=== PATIENT | female | born 1985 | race Two or more races ===

== ENCOUNTER 2019-11-17 08:50 | Day surgery (SDC) | payer MEDICAID ==
[~2019-11-17 08:50] MED LIST: Lactated Ringers 1,000 ML IV SCH; Lidocaine 1%/Sod Bicarbonate in NS 8.4% 1 ML Syringe IDERM PRN; Sodium Chloride 0.9% 10 ML Syringe FLUSH PRN
[2019-11-17] MEDS ORDERED: Propofol 200 MG/20 ML SDV ONE (09:52)
[2019-11-17] MEDS ORDERED: Lidocaine 1% 4 ML ONE (09:52)
[2019-11-17] MEDS ORDERED: fentaNYL 100 MCG/2 ML SDV ONE (09:52)
[2019-11-17] MEDS ORDERED: Midazolam 1 MG/ML 2 ML SDV ONE (09:52)
[2019-11-17] MEDS ORDERED: Ketamine 500 mg/10 ML MDV ONE (09:54)
[2019-11-17] MEDS ORDERED: ceFAZolin 1 GM Vial ONE (10:51)
--- NOTE | 2019-11-17 11:25 | PCM.OPNOTE ---
- General Post-Op/Procedure Note Date of Surgery/Procedure: 11/17/19 Operative Procedure(s): Dilation and suction curettage Findings: Uterus sounded to 10. The endometrial curettings consistent with products of conception. No adnexal abnormality is noted. Pre Op Diagnosis: Miscarriage Post-Op Diagnosis: Same Anesthesia Technique: MAC Primary Surgeon: Cayden Lee Anesthesia Provider: Oriana Garcia Pathology: Endometrial curettings consistent with products of conception. Fluid Replacement, Intraop: 1,100 EBL in mLs: 20 Complications: None Condition: Good Free Text/Narrative:: Surgery duration: 4 minutes The patient was taken to the operating room and placed in a supine position operating table. She received 2 g of Ancef preoperatively for infection prophylaxis and had sequential compression stockings in place for DVT prophylaxis. After adequate MAC anesthesia patient was placed in a dorsal lithotomy position. A weighted speculum was placed in the vagina. Cervix is found to be dilated to approximately 1 centimeters. Uterus was sounded to approximately 10 cm. It was found to be anterior and mid position. An 8 mm suction curette was then introduced in routine fashion the endometrial cavity was evacuated. Moderate amount tissue was obtained. Findings consistent with products of conception. A medium size sharp curet was introduced and very careful fashion the endometrial cavity was curetted. It was be clear of any further tissue. The suction curet was then reintroduced and small and blood was removed. No further tissue was removed. This point the D&C was discontinued. The single-toothed tenaculum used to stabilize the anterior lip the cervix was removed. Blood was removed from the vagina with a stick sponge and the weighted speculum was removed from the vagina. The patient was awakened from LMA anesthesia. The patient was discharged from the operating room in good condition.
[2019-11-17] MEDS ORDERED: Ketorolac 30 MG/ML SDV IVPUSH SCH (11:30)
[2019-11-17] MEDS ORDERED: Ketorolac 30 MG/ML SDV ONE (11:32)
[2019-11-17 12:29] VITALS: BP 108/59; PULSE 62
== END 2019-11-17 12:22 | disposition home or self-care (01) ==
LOC: JD.SDS 08:50
PROVIDERS: ATTEND Obstetrics & Gynecology
DX: O03.4 Incomplete spontaneous abortion without complication (principal); E78.00 Pure hypercholesterolemia, unspecified; F41.9 Anxiety disorder, unspecified; F32.9 Major depressive disorder, single episode, unspecified; Z87.891 Personal history of nicotine dependence; Z91.048 Other nonmedicinal substance allergy status; Z88.1 Allergy status to other antibiotic agents; Z86.73 Personal history of transient ischemic attack (TIA), and cerebral infarction without residual deficits
CPT/HCPCS: 36415; 59812; 81001; 85025; J0690; J1885; J2001; J2250; J2704; J3010; J7120; 01965

== ENCOUNTER 2020-09-15 19:48 | Emergency (ER) | payer MEDICAID ==
[2020-09-15 20:09] VITALS: BP 124/79; PULSE 78
--- NOTE | 2020-09-15 20:13 | EDM.PDOC ---
ED HPI GENERAL MEDICAL PROBLEM - General Chief Complaint: IN [employer] Problem Stated Complaint: VAGINAL BLEEDING 9WKS PG TWINS Time Seen by Provider: 09/15/20 20:05 Source of Information: Reports: Patient History Limitations: Reports: No Limitations - History of Present Illness INITIAL COMMENTS - FREE TEXT/NARRATIVE: 35-year-old female presents to the ED with acute onset of bleeding per vagina. 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 When they were done clinic she elected to go to the bathroom due to full bladder and appreciated bright red blood per vagina on wiping with a small nickel sized clot that appeared to be slightly maroon in the toilet. Patient is known to be with twin gestation. Last known menstrual period was estimated to be around July 14. EDC has been set by ultrasound to be April 20, 2021. so far has been unremarkable. She is 4 para 2 spontaneous miscarriage x1. She is currently being cared for at a high risk maternal unit in [place]. 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 She has had no seizures and is on no seizure medication at this time. She does admit that she does have mild residual right-sided weakness. All of her deliveries thus far have been vaginal. Denies any lower abdominal cramping pain or back pain at this time. Onset: Today, Sudden Onset Date: 09/15/20 Onset Time: 19:00 Duration: Minutes: Location: Reports: Other (Acute bleeding per vagina) Quality: Reports: Other ( noted after voiding at 1900 hrs. 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 Mostly on wiping). 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 The stroke precipitated a seizure disorder but she is not had a seizure for many years and is not on antiseizure medications. Respiratory History: Reports: None Gastrointestinal History: Reports: GERD IN [employer]ING [employer] History: Reports: , Spontaneous Musculoskeletal History: Reports: None Neurological History: Reports: CVA, Migraines, Seizure Psychiatric History: Reports: Anxiety, Depression Endocrine/Metabolic History: Reports: None Hematologic History: Reports: None Immunologic History: Reports: None Oncologic (Cancer) History: Reports: None Dermatologic History: Reports: Other (See Below) Other Dermatologic History: dermatitis - Past Surgical History Head Surgeries/Procedures: Reports: None Cardiovascular Surgical History: Reports: Other (See Below) Other Cardiovascular Surgeries/Procedures: mitral valve repair Respiratory Surgical History: Reports: None GI Surgical History: Reports: None Endocrine Surgical History: Reports: None Musculoskeletal Surgical History: Reports: None Oncologic Surgical History: Reports: None Social & Family History - Caffeine Use Caffeine Use: Reports: Coffee - Living Situation & Occupation Living situation: Reports: Occupation: Employed [facility] - Review of Systems Review Of Systems: See Below Constitutional: Reports: Fatigue. Denies: Fever, Chills, Malaise HEENT: Reports: No Symptoms Respiratory: Reports: No Symptoms Cardiovascular: Reports: Other (Struve open heart surgery due to a growth on her mitral valve.) Endocrine: Reports: Fatigue GI/Abdominal: Reports: Nausea. Denies: Abdominal Pain, Constipation, Diarrhea, Vomiting (Rare nausea. No vomiting) : Reports: Frequency. Denies: Dysuria Musculoskeletal: Reports: No Symptoms Skin: Reports: No Symptoms Neurological: Reports: Seizure (You have recurrent seizures precipitated by growth on her mitral valve causing strokes no seizures) Psychiatric: Reports: No Symptoms ( for many years.) Hematologic/Lymphatic: Reports: No Symptoms Immunologic: Reports: No Symptoms ED EXAM - Physical Exam Exam: See Below Exam Limited By: No Limitations General Appearance: Alert, WD/WN, Anxious, Mild Distress, Other (Anxious. Temperature is 36.4 with a heart rate of 78 in sinus respiratory is 20 O2 sats 100% room air. BP 10/30/1978) Eye Exam: Bilateral Eye: Normal Inspection (No), PERRL ( blepharal pallor or scleral icterus.) Throat/Mouth: Normal Inspection, Normal Lips, Normal Teeth, Normal Oropharynx Neck: Normal Inspection, Non-Tender, Full Range of Motion. No: Carotid Bruit, Thyromegaly Respiratory/Chest: No Respiratory Distress, Lungs Clear, Normal Breath Sounds, No Accessory Muscle Use Cardiovascular: Normal Peripheral Pulses, Regular Rate, Rhythm ( mitral insufficiency.), No Edema, No Gallop, No Rub, Systolic Murmur (Faint grade 1 murmur heard to the left of the sternal border compatible with very slight), Other GI/Abdominal Exam: Normal Bowel Sounds, Soft (All healed midline sternotomy incision.), Non-Tender, No Organomegaly, No Mass, Pelvis Stable, Other (Scarring from belly ring above the umbilicus. Drain wound scars upper mid abdomen.) (Female) Exam: Normal External Exam Back Exam: Normal Inspection, Full Range of Motion. No: CVA Tenderness (L), CVA Tenderness (R) Extremities: Normal Inspection, Normal Range of Motion, Non-Tender, No Pedal Edema Neurological: Alert, Oriented, CN II-XII Intact, Normal Cognition, Normal Gait Psychiatric: Normal Affect, Normal Mood Skin Exam: Warm, Dry, Intact, Normal Color, No Rash Course - Vital Signs Last Recorded V/S: Last Vital Signs Temp 36.4 C 09/15/20 20:06 Pulse 78 09/15/20 20:06 Resp 20 09/15/20 20:06 BP 124/79 09/15/20 20:06 Pulse Ox 100 09/15/20 20:06 - Orders/Labs/Meds Orders: Active Orders 24 hr Category Date Time Status OB Transvaginal [US] Stat Exams 09/15/20 20:14 Taken Dextrose 5%-0.9% NaCl [Dextrose 5%-Normal Saline] 1,000 Med 09/15/20 20:15 Active ml IV ASDIRECTED Medication Orders Dextrose/Sodium Chloride (Dextrose 5%-Normal Saline) 1,000 mls @ 125 mls/hr IV ASDIRECTED KENNETH Last Admin: 09/15/20 20:42 Dose: 125 mls/hr Documented by: RODRICK Labs: Laboratory Tests 09/15/20 09/15/20 09/15/20 Range/Units 20:40 20:40 20:40 WBC 11.44 H (3.98-10.04) K/mm3 RBC 4.55 (3.98-5.22) M/mm3 Hgb 14.2 (11.2-15.7) gm/dl Hct 42.9 (34.1-44.9) % MCV 94.3 (79.4-94.8) fl MCH 31.2 (25.6-32.2) pg MCHC 33.1 (32.2-35.5) g/dl RDW Std Deviation 44.0 (36.4-46.3) fL Plt Count 220 (182-369) K/mm3 MPV 10.6 (9.4-12.3) fl Neut % (Auto) 68.9 (34.0-71.1) % Lymph % (Auto) 19.0 L (19.3-51.7) % Barton % (Auto) 10.8 (4.7-12.5) % Eos % (Auto) 0.9 (0.7-5.8) Baso % (Auto) 0.2 (0.1-1.2) % Neut # (Auto) 7.90 H (1.56-6.13) K/mm3 Lymph # (Auto) 2.17 (1.18-3.74) K/mm3 Barton # (Auto) 1.23 H (0.24-0.36) K/mm3 Eos # (Auto) 0.10 (0.04-0.36) K/mm3 Baso # (Auto) 0.02 (0.01-0.08) K/mm3 PT (9.7-12.0) SECONDS INR APTT (21.7-31.4) SECONDS Sodium 136 (136-145) mEq/L Potassium 3.6 (3.5-5.1) mEq/L Chloride 102 (98-107) mEq/L Carbon Dioxide 25 (21-32) mEq/L Anion Gap 12.6 (5-15) BUN 11 (7-18) mg/dL Creatinine 0.8 (0.55-1.02) mg/dL Est Cr Clr Drug Dosing 78.37 mL/min Estimated GFR (MDRD) > 60 (>60) mL/min BUN/Creatinine Ratio 13.8 L (14-18) Glucose 89 (74-106) mg/dL Calcium 9.0 (8.5-10.1) mg/dL Total Bilirubin 0.1 L (0.2-1.0) mg/dL AST 10 L (15-37) U/L ALT 19 (14-59) U/L Alkaline Phosphatase 45 L (46-116) U/L Total Protein 6.9 (6.4-8.2) g/dl Albumin 3.2 L (3.4-5.0) g/dl Globulin 3.7 gm/dL Albumin/Globulin Ratio 0.9 L (1-2) HCG, Quant 731204.0 mIU/mL Urine Color (Yellow) Urine Appearance (Clear) Urine pH (5.0-8.0) Ur Specific Brave (1.005-1.030) Urine Protein (Negative) Urine Glucose (UA) (Negative) Urine Ketones (Negative) Urine Occult Blood (Negative) Urine Nitrite (Negative) Urine Bilirubin (Negative) Urine Urobilinogen (0.2-1.0) Ur Leukocyte Esterase (Negative) Urine RBC (0-5) /hpf Urine WBC (0-5) /hpf Ur Epithelial Cells (0-5) /hpf Urine Bacteria (FEW) /hpf Urine Mucus (FEW) /hpf Blood Type A POSITIVE Gel Antibody Screen Negative 09/15/20 09/15/20 Range/Units 20:40 20:46 WBC (3.98-10.04) K/mm3 RBC (3.98-5.22) M/mm3 Hgb (11.2-15.7) gm/dl Hct (34.1-44.9) % MCV (79.4-94.8) fl MCH (25.6-32.2) pg MCHC (32.2-35.5) g/dl RDW Std Deviation (36.4-46.3) fL Plt Count (182-369) K/mm3 MPV (9.4-12.3) fl Neut % (Auto) (34.0-71.1) % Lymph % (Auto) (19.3-51.7) % Barton % (Auto) (4.7-12.5) % Eos % (Auto) (0.7-5.8) Baso % (Auto) (0.1-1.2) % Neut # (Auto) (1.56-6.13) K/mm3 Lymph # (Auto) (1.18-3.74) K/mm3 Barton # (Auto) (0.24-0.36) K/mm3 Eos # (Auto) (0.04-0.36) K/mm3 Baso # (Auto) (0.01-0.08) K/mm3 PT 9.9 (9.7-12.0) SECONDS INR < 0.93 APTT 25.7 (21.7-31.4) SECONDS Sodium (136-145) mEq/L Potassium (3.5-5.1) mEq/L Chloride (98-107) mEq/L Carbon Dioxide (21-32) mEq/L Anion Gap (5-15) BUN (7-18) mg/dL Creatinine (0.55-1.02) mg/dL Est Cr Clr Drug Dosing mL/min Estimated GFR (MDRD) (>60) mL/min BUN/Creatinine Ratio (14-18) Glucose (74-106) mg/dL Calcium (8.5-10.1) mg/dL Total Bilirubin (0.2-1.0) mg/dL AST (15-37) U/L ALT (14-59) U/L Alkaline Phosphatase (46-116) U/L Total Protein (6.4-8.2) g/dl Albumin (3.4-5.0) g/dl Globulin gm/dL Albumin/Globulin Ratio (1-2) HCG, Quant mIU/mL Urine Color Yellow (Yellow) Urine Appearance Clear (Clear) Urine pH 6.5 (5.0-8.0) Ur Specific Brave 1.020 (1.005-1.030) Urine Protein Negative (Negative) Urine Glucose (UA) Negative (Negative) Urine Ketones Negative (Negative) Urine Occult Blood 2+ H (Negative) Urine Nitrite Negative (Negative) Urine Bilirubin Negative (Negative) Urine Urobilinogen 0.2 (0.2-1.0) Ur Leukocyte Esterase Negative (Negative) Urine RBC 0-5 (0-5) /hpf Urine WBC 0-5 (0-5) /hpf Ur Epithelial Cells 5-10 H (0-5) /hpf Urine Bacteria Few (FEW) /hpf Urine Mucus Not seen (FEW) /hpf Blood Type Gel Antibody Screen Meds: Medications Generic Name Dose Route Start Last Admin Trade Name Tammy PRN Reason Stop Dose Admin Dextrose/Sodium Chloride 1,000 mls @ 125 mls/hr 09/15/20 20:15 09/15/20 20:42 Dextrose 5%-Normal Saline IV 125 mls/hr ASDIRECTED KENNETH Administration - Radiology Interpretation Free Text/Narrative:: 35-year-old female who is 4 para 2 1 spontaneous presents to the ED due to acute onset of bright red blood per vagina upon wiping after voiding at 1900 hrs. tonight. No associated lower abdominal cramping pain or back pain. Known to be with twin gestation. Estimated date of confinement is April 20, 2021. Last menstrual period was estimated to be around July 14. Uterine fundus is not palpable abdominally. No clots within the vagina. Plan IV D5 normal saline at 125 mils per hour. Routine labs to be collected including a type and screen. She will have a transvaginal ultrasound as well as a quantitative hCG. - Re-Assessments/Exams Free Text/Narrative Re-Assessment/Exam: 09/15/20 21:31 White count is 11.44 with 68.9% neutrophils on the auto differential. Hemoglobin is 14.2 with hematocrit of 42.9. Platelet count is 222,000. PT is 9.9 with an INR of less than 0.93. PTT is 25.7. Urinalysis shows 2+ occult blood but no other signs of infection 09/15/20 21:39 Sodium 136 with a potassium of 3.6. Chloride 102 with a bicarb of 25. Anion gap is 12.6. BUN is 11 with a creatinine of 0.8. GFR is greater than 60. Glucose is 89 with a calcium of 9.0. Liver function is normal total protein 6.9 with an albumin fraction of 3.2. Quantitative hCG is pending. Tr ansvaginal ultrasound has been completed. It confirms twin gestation with twin A tested to be 9 weeks and 6 days of gestation with a heart rate of 174/min. Twin A is located closer to the cervix. Twin B 9 weeks 4 days with a heart rate of 174 bpm. There is a normal yolk sac. Twin B is located further superiorly and has a crown-rump length of 2.96 cm. No morphologic abnormalities are identified. Regular cardiac contractions are present both have heart rates remains to be 174 bpm. There is a normal yolk sac. The cervix is long and closed. The right ovary measures 3.3 x 1.5 x 1.8 cm and contains a corpus luteal cyst. The corpus luteal cyst measures 1.6 x 1.3 x 1.8 cm. There is normal blood flow in the right ovary. The left ovary measures 3.4 x 1.8 x 1.9 cm and is normal in appearance with normal blood flow. There is a trace of free fluid in the pelvis. No identified source of intra uterine bleeding identified. Patient reassured in this regard. She will take life easy over the weekend. She will return to medical care if she starts to flow heavily per vagina. 09/15/20 : Blood type is a positive. Quantitative beta-hCG is pending. 09/15/20 22:18 Quantitative beta-hCG is 212,066. Patient was discharged to home. Departure - Departure Time of Disposition: 22:05 Disposition: Home, Self-Care 01 Condition: Fair Clinical Impression: First trimester bleeding Twin gestation in first trimester Qualifiers: Multiple gestation type: dichorionic and diamniotic Qualified Code(s): O30.041 - Twin , dichorionic/diamniotic, first trimester - Discharge Information *PRESCRIPTION DRUG MONITORING PROGRAM REVIEWED*: Not Applicable *COPY OF PRESCRIPTION DRUG MONITORING REPORT IN PATIENT ANNALISA: Not Applicable Instructions: Multiple , Vaginal Bleeding During , First Trimester, Cyem-ss-[id number] Referrals: Dayana Jimenez MD [Physician] - Forms: ED Department Discharge Additional Instructions: Evaluation in the emergency room today in regards to sudden onset of bright red bleeding per vagina noted after voiding after work tonight. Known to be with twin gestation and considered high risk due to previous problems with mitral valve growth that caused multiple cerebral emboli and strokes and a seizure disorder. Transvaginal ultrasound confirms twin gestation with both twins showing a very similar estimated gestational age of 9 weeks and 6 days and 9 weeks and 4 days. Both have good heart beats at 174/min. Normal yolk sacs no abnormalities appreciated. No source of intra uterine bleeding is evident. Bleeding may be coming from the cervix. Suggest that you take life very easy over the next 3 days and let the bleeding settle down. You need to return to medical care if you start to bleed very heavily per vagina enough to soak a pad per hour etc. No need at this time to speed up any appointments with [employer]. Plan on follow-up as prearranged. Of note your blood type is a positive. Sepsis Event Note (ED) - Focused Exam Vital Signs: Vital Signs Temp Pulse Resp BP Pulse Ox 09/15/20 20:06 36.4 C 78 20 124/79 100 - My Orders Last 24 Hours: My Active Orders 09/15/20 20:14 OB Transvaginal [US] Stat 09/15/20 20:15 Dextrose 5%-0.9% NaCl [Dextrose 5%-Normal Saline] 1,000 ml IV ASDIRECTED - Assessment/Plan Last 24 Hours: My Active Orders 09/15/20 20:14 OB Transvaginal [US] Stat 09/15/20 20:15 Dextrose 5%-0.9% NaCl [Dextrose 5%-Normal Saline] 1,000 ml IV ASDIRECTED
[2020-09-15] MEDS ORDERED: Dextrose 5%-0.9% NaCl 1,000 ML IV SCH (20:15)
--- NOTE | 2020-09-16 09:57 | US ---
First trimester obstetrical ultrasound (multiple gestation): Multiple real-time images were obtained trans-vaginally. Twin pregnancies are identified in separate amniotic sacs. Small embryos are seen within both sacs. No subchorionic hemorrhage is appreciated. Small amount of cul-de-sac fluid is seen. Ovaries: Within normal limits Measurements: Embryo A: CRL is 2.8 cm correlating to 9 weeks 4 days, heart rate is 173 bpm Embryo B: CRL is 2.96 cm correlating to 9 weeks 6 days, heart rate is 173 bpm Impression: 1. Small amount of fluid within the cul-de-sac. 2. Twin in separate amniotic sacs. Dates as noted above. 3. No additional abnormality is appreciated. 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
== END 2020-09-15 22:15 | disposition home or self-care (01) ==
LOC: JD.ED 19:48
DX: O20.9 Hemorrhage in early pregnancy, unspecified (principal); O30.041 Twin pregnancy, dichorionic/diamniotic, first trimester; Z88.1 Allergy status to other antibiotic agents; Z86.73 Personal history of transient ischemic attack (TIA), and cerebral infarction without residual deficits; Z3A.09 9 weeks gestation of pregnancy
CPT/HCPCS: 36415; 76817; 80053; 81001; 84702; 85025; 85610; 85730; 86850; 86900; 86901; 99284; J7042; 99283

== ENCOUNTER 2021-02-14 19:00 | Inpatient (IN) | payer MEDICAID ==
[2021-02-14] MEDS ORDERED: ceFAZolin 2 GM in Premix Bag 1 BAG IV ONE (19:51)
[2021-02-14] MEDS ORDERED: Ampicillin 2 GM in Sodium Chloride 0.9% 100 ML IV ONE ×2 (19:51→23:00)
[2021-02-14] MEDS ORDERED: Citric Acid/Sodium Citrate Solution 30 ML Cup PO ONE (19:51)
[2021-02-14] MEDS ORDERED: Sodium Chloride 0.9% 10 ML Syringe FLUSH PRN (19:51)
[2021-02-14] MEDS ORDERED: Metoclopramide 10 MG/2 ML SDV IVPUSH ONE (19:51)
[2021-02-14] MEDS ORDERED: Lactated Ringers 1,000 ML IV SCH (20:00)
[2021-02-14] MEDS ORDERED: Oxytocin/Lactated Ringers 20 UNIT/1,000 ML BAG IV SCH (20:00)
[2021-02-14] MEDS ORDERED: Oxytocin/Lactated Ringers 10 UNIT/1,000 ML BAG IV SCH (20:00)
[2021-02-14] MEDS ORDERED: Propofol 200 MG/20 ML SDV ONE (20:05)
[2021-02-14] MEDS ORDERED: Succinylcholine/Sod PF 100 MG/5 ML SYRINGE IV ONE (20:08)
[2021-02-14] MEDS ORDERED: Oxytocin 10 Units/1 ML SDV ONE (20:17)
[2021-02-14] MEDS ORDERED: Sodium Chloride 0.9% 250 ML ONE (20:20)
[2021-02-14] MEDS ORDERED: fentaNYL 250 MCG/5 ML SDV ONE (20:25)
[2021-02-14] MEDS ORDERED: Carboprost Tromethamine 250 MCG/1 ML Amp ONE (20:30)
[2021-02-14] MEDS ORDERED: Lactated Ringers 1,000 ML ONE (20:33)
[2021-02-14] MEDS ORDERED: Ketorolac 30 MG/ML SDV ONE (20:37)
[2021-02-14] MEDS ORDERED: fentaNYL 100 MCG/2 ML SDV IVPUSH PRN (21:20)
--- NOTE | 2021-02-14 21:24 | PCM.PREANE ---
Preanesthetic Assessment - Procedure Proposed Procedure: 1943 called into OR1 patient delivering twin #1 asked to go to C section with twin #2 told history of open heart and endocarditis - Anesthesia/Transfusion/Family Hx Anesthesia History: Unknown Family History of Anesthesia Reaction: Other (see below) (unknown) Transfusion History: Unknown - Review of Systems General: Fatigue, Malaise Pulmonary: No Symptoms Cardiovascular: No Symptoms Gastrointestinal: Abdominal Pain (labor) Neurological: Other (unknown) Other: Reports: None - Physical Assessment ASA Class: 2E Mental Status: Alert & Oriented x3 Airway Class: Mallampati = 3 Dentition: Reports: Normal Dentition Thyro-Mental Finger Breadths: 2 Mouth Opening Finger Breadths: 2 ROM/Head Extension: Full Lungs: Clear to Auscultation Cardiovascular: Regular Rate, Regular Rhythm - Allergies Allergies/Adverse Reactions: Allergies Allergy/AdvReac Type Severity Reaction Status Date / Time vancomycin Allergy Severe Hives Verified 09/15/20 20:06 adhesive tape Allergy Rash Verified 02/10/21 14:35 - Anesthesia Plan Pre-Op Medication Ordered: None - Acknowledgements Anesthesia Type Planned: General Anesthesia Pt an Appropriate Candidate for the Planned Anesthesia: Yes Alternatives and Risks of Anesthesia Discussed w Pt/Guardian: Yes Pt/Guardian Understands and Agrees with Anesthesia Plan: Yes PreAnesthesia Questionnaire HEENT History: Reports: Other (See Below) Other HEENT History: poor dentition Cardiovascular History: Reports: Bacterial Endocarditis, High Cholesterol, Other (See Below) Other Cardiovascular History: mitral valve vegetation Respiratory History: Reports: None Gastrointestinal History: Reports: GERD REGISTERED 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 ASSISTANT 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: 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: , Spontaneous Musculoskeletal History: Reports: None Neurological History: Reports: CVA, Migraines, Seizure Other Neuro History: some right side weakness Psychiatric History: Reports: Anxiety, Depression Endocrine/Metabolic History: Reports: None Hematologic History: Reports: None Immunologic History: Reports: None Oncologic (Cancer) History: Reports: None Dermatologic History: Reports: Other (See Below) Other Dermatologic History: dermatitis - Past Surgical History Cardiovascular Surgical History: Reports: Other (See Below) Other Cardiovascular Surgeries/Procedures: mitral valve repair Female Surgical History: Reports: D&C - HOME MEDS Home Medications: Home Meds Vits #93/Iron Fum/FA [ Formula Tablet] 1 tab PO DAILY 11/16/19 [History] Aspirin [Halfprin] 81 mg PO DAILY 02/10/21 [History] Pantoprazole Sodium [Protonix] 40 mg PO DAILY 02/10/21 [History] - CURRENT (IN HOUSE) MEDS Current Meds: Current Medications Lactated Ringer's (Ringers, Lactated) 1,000 mls @ 125 mls/hr IV ASDIRECTED KENNETH Oxytocin/Lactated Ringer's (Pitocin In Lr 20 Units/1,000 Ml) 20 unit in 1,000 mls @ 500 mls/hr IV TITRATE KENNETH Oxytocin/Lactated Ringer's (Pitocin In Lr 10 Units/1,000 Ml) 10 unit in 1,000 mls @ 100 mls/hr IV ASDIRECTED KENNETH Sodium Chloride (Sodium Chloride 0.9% 10 Ml Syringe) 10 ml FLUSH ASDIRECTED PRN PRN Reason: Keep Vein Open Discontinued Medications Citric Acid/Sodium Citrate (Citric Acid/Sodium Citrate Solution 30 Ml Cup) 30 ml PO ONETIME ONE Stop: 02/14/21 19:52 Ampicillin Sodium 2 gm/ Sodium (Chloride) 100 mls @ 200 mls/hr IV ONETIME ONE Stop: 02/14/21 20:20 Cefazolin Sodium/Dextrose 2 gm (/ Premix) 50 mls @ 100 mls/hr IV ONETIME ONE Stop: 02/14/21 20:20 Metoclopramide HCl (Metoclopramide 10 Mg/2 Ml Sdv) 10 mg IVPUSH ONETIME ONE Stop: 02/14/21 19:52
--- NOTE | 2021-02-14 21:49 | PCM.LDHP ---
L&D History of Present Illness - General Date of Service: 02/14/21 Admit Problem/Dx: Patient Status Order with Admit Dx/Problem 02/14/21 19:10 Patient Status [ADT] Routine Admission Diagnosis/Problem Admission Diagnosis/Problem - History of Present Illness Introduction:: 35 year old female at 30w5 weeks now was admitted for vaginal bleeding in [place] over the weekend. At 9 am began having stronger pain, pelvic pressure and increased vaginal bleeding. Called her physician and was asked to do a UA. Continued having severe pain and increased bleeding so presented to labor and delivery. Upon arrival was having regular contractions. Cervical exa mination vertex, complete and +2 station. - Related Data Allergies/Adverse Reactions: Allergies Allergy/AdvReac Type Severity Reaction Status Date / Time vancomycin Allergy Severe Hives Verified 09/15/20 20:06 adhesive tape Allergy Rash Verified 02/10/21 14:35 Home Medications: Home Meds Vits #93/Iron Fum/FA [ Formula Tablet] 1 tab PO DAILY 11/16/19 [History] Aspirin [Halfprin] 81 mg PO DAILY 02/10/21 [History] Pantoprazole Sodium [Protonix] 40 mg PO DAILY 02/10/21 [History] Past Medical History HEENT History: Reports: Other (See Below) Other HEENT History: poor dentition Cardiovascular History: Reports: Bacterial Endocarditis, High Cholesterol, Other (See Below) Other Cardiovascular History: mitral valve vegetation Respiratory History: Reports: None Gastrointestinal History: Reports: GERD [employer] History: Reports: , Spontaneous Musculoskeletal History: Reports: None Neurological History: Reports: CVA, Migraines, Seizure Other Neuro History: some right side weakness Psychiatric History: Reports: Anxiety, Depression Endocrine/Metabolic History: Reports: None Hematologic History: Reports: None Immunologic History: Reports: None Oncologic (Cancer) History: Reports: None Dermatologic History: Reports: Other (See Below) Other Dermatologic History: dermatitis - Past Surgical History Cardiovascular Surgical History: Reports: Other (See Below) Other Cardiovascular Surgeries/Procedures: mitral valve repair Female Surgical History: Reports: D&C Social & Family History - Caffeine Use Caffeine Use: Reports: Soda - Living Situation & Occupation Living situation: Reports: Occupation: Employed H&P Review of Systems - Review of Systems: Review Of Systems: See Below General: Reports: No Symptoms HEENT: Reports: No Symptoms Pulmonary: Reports: No Symptoms Cardiovascular: Reports: No Symptoms Gastrointestinal: Reports: No Symptoms Musculoskeletal: Reports: No Symptoms Skin: Reports: No Symptoms Psychiatric: Reports: No Symptoms Neurological: Reports: No Symptoms Hematologic/Lymphatic: Reports: No Symptoms Immunologic: Reports: No Symptoms L&D Exam - Exam Exam: See Below - Vital Signs Vital Signs: Last Vital Signs Temp 36.5 C 02/14/21 21:09 Pulse Resp 20 02/14/21 21:40 BP 121/56 L 02/14/21 21:40 Pulse Ox 91 L 02/14/21 21:40 - OB Specific Contraction Intensity: Strong Movement: Active Heart Tones: Present Heart Rate (FHR) Variability: Moderate (6-25 bmp) Presentation: Vertex (B breech) - Exam General: Alert, Oriented HEENT: PERRLA, Conjunctiva Clear, EACs Clear, EOMI, Hearing Intact, Mucosa Moist & [place], Nares Patent, Normal Nasal Septum, Posterior Pharynx Clear, TMs Clear Neck: Supple, Trachea Midline Lungs: Clear to Auscultation, Normal Respiratory Effort Cardiovascular: Regular Rate, Regular Rhythm GI/Abdominal Exam: Normal Bowel Sounds, Soft, Non-Tender, No Organomegaly, No Distention, No Abnormal Bruit Back Exam: Normal Inspection, Full Range of Motion Extremities: Normal Inspection, Normal Range of Motion, Non-Tender, No Pedal Edema, Normal Capillary Refill Skin: Warm, Dry, Intact Neurological: Cranial Nerves Intact, Reflexes Equal Bilateral Psychiatric: Alert, Normal Affect, Normal Mood - Patient Data Lab Results Last 24 hrs: Laboratory Results - last 24 hr 02/14/21 Range/Units 21:18 WBC 20.58 H (3.98-10.04) K/mm3 RBC 3.02 L (3.98-5.22) M/mm3 Hgb 10.2 L D (11.2-15.7) gm/dl Hct 30.8 L (34.1-44.9) % MCV 102.0 H D (79.4-94.8) fl MCH 33.8 H (25.6-32.2) pg MCHC 33.1 (32.2-35.5) g/dl RDW Std Deviation 47.3 H (36.4-46.3) fL Plt Count 111 L (182-369) K/mm3 MPV 11.7 (9.4-12.3) fl Neut % (Auto) 90.9 H (34.0-71.1) % Lymph % (Auto) 5.5 L (19.3-51.7) % [place] % (Auto) 3.1 L (4.7-12.5) % Eos % (Auto) 0.4 L (0.7-5.8) Baso % (Auto) 0.1 (0.1-1.2) % Neut # (Auto) 18.72 H (1.56-6.13) K/mm3 Lymph # (Auto) 1.13 L (1.18-3.74) K/mm3 [place] # (Auto) 0.63 H (0.24-0.36) K/mm3 Eos # (Auto) 0.08 (0.04-0.36) K/mm3 Baso # (Auto) 0.02 (0.01-0.08) K/mm3 Result Diagrams: 02/14/21 21:18 Problem List Initiated/Reviewed/Updated: Yes Orders Last 24hrs: Active Orders 24 hr Category Date Time Status Patient Status Manage Transfer [TRANSFER] Routine ADT 02/14/21 21:11 Active Patient Status [ADT] Routine ADT 02/14/21 19:10 Active Communication Order [RC] ROUTINE Care 02/14/21 19:52 Active Communication Order [RC] ROUTINE Care 02/14/21 21:20 Active Cooling Warming Measures [RC] ASDIRECTED Care 02/14/21 21:20 Active Heart Tones [RC] PER UNIT ROUTINE Care 02/14/21 19:52 Active Non Stress Test [RC] PER UNIT ROUTINE Care 02/14/21 19:10 Active Notify Provider [RC] ASDIRECTED Care 02/14/21 21:20 Active Oxygen Therapy [RC] ASDIRECTED Care 02/14/21 21:20 Active Peripheral IV Care [RC] . DIRECTED Care 02/14/21 19:52 Active Procedure Site Prep Instruct [RC] ASDIRECTED Care 02/14/21 19:52 Active Pulse Oximetry [RC] ASDIRECTED Care 02/14/21 21:20 Active Verify Patient Consent Obtain [RC] PER UNIT ROUTINE Care 02/14/21 19:52 Active Vital Signs [RC] PER UNIT ROUTINE Care 02/14/21 19:10 Active Vital Signs [RC] PFP Care 02/14/21 19:52 Active Vital Signs [RC] Q15M Care 02/14/21 21:20 Active Abdomen 1V Flat [CR] Routine Exams 02/14/21 Taken CORONAVIRUS COVID-19 VINCENT [MOLEC] Stat Lab 02/14/21 19:54 Ordered DRUG SCREEN, URINE [URCHEM] Stat Lab 02/14/21 19:11 Ordered RAPID PLASMA REAGIN,RPR [CHEM] Routine Lab 02/14/21 19:52 Ordered TYPE AND SCREEN [BBK] Routine Lab 02/14/21 19:52 Ordered UA W/DORIE RFLX IF INDICATED [URIN] Routine Lab 02/14/21 19:11 Ordered Lactated Ringers [Ringers, Lactated] 1,000 ml Med 02/14/21 20:00 Active IV ASDIRECTED Oxytocin/Lactated Ringers [Pitocin in LR 10 Units/1,000 Med 02/14/21 20:00 Active ML] 10 unit in 1,000 ml IV ASDIRECTED Oxytocin/Lactated Ringers [Pitocin in LR 20 Units/1,000 Med 02/14/21 20:00 Active ML] 20 unit in 1,000 ml IV TITRATE Sodium Chloride 0.9% [Saline Flush] Med 02/14/21 19:51 Active 10 ml FLUSH ASDIRECTED PRN fentaNYL [Sublimaze] Med 02/14/21 21:20 Active 50 mcg IVPUSH Q5M PRN Peripheral IV Insertion Adult [OM.PC] Routine Oth 02/14/21 19:52 Ordered Schedule Procedure [COMM] Per Unit Routine Oth 02/14/21 19:52 Ordered Resuscitation Status Routine Resus Stat 02/14/21 19:10 Ordered Medication Orders Fentanyl (Fentanyl 100 Mcg/2 Ml Sdv) 50 mcg IVPUSH Q5M PRN PRN Reason: Pain Lactated Ringer's (Ringers, Lactated) 1,000 mls @ 125 mls/hr IV ASDIRECTED KENNETH Oxytocin/Lactated Ringer's (Pitocin In Lr 20 Units/1,000 Ml) 20 unit in 1,000 mls @ 500 mls/hr IV TITRATE KENNETH Oxytocin/Lactated Ringer's (Pitocin In Lr 10 Units/1,000 Ml) 10 unit in 1,000 mls @ 100 mls/hr IV ASDIRECTED KENNETH Sodium Chloride (Sodium Chloride 0.9% 10 Ml Syringe) 10 ml FLUSH ASDIRECTED PRN PRN Reason: Keep Vein Open Assessment/Plan Comment:: 30w5 with di-di twins in labor with advanced cervical dilation. Verbally consented for vaginal delivery and possible section for B. Risks, benefits and alternatives discussed. Patient voices understanding. Wishes to proceed. Transferred immediately to OR for this.
--- NOTE | 2021-02-14 21:58 | PCM.OPNOTE ---
- General Post-Op/Procedure Note Date of Surgery/Procedure: 02/14/21 Operative Procedure(s): Vaginal delivery, primary section Findings: A - Vertex, vaginal delivery at 0803, APGARS 5/7/7, weight 1770g B - Breech (footling), , APGARS 2/9, at 1660, male Pre Op Diagnosis: labor Post-Op Diagnosis: Same Anesthesia Technique: General ET Tube Primary Surgeon: Dayana Jimenez Anesthesia Provider: Christopher Lima Activities Volunteer: Leanna Ortiz Fluid Replacement, Intraop: 1,000 EBL in mLs: 1,600 Complications: None Condition: Good Free Text/Narrative:: Stage I - patient presented in active labor, complete, 30 weeks. Stage II - of viable male in or. Head delivered in controlled manner over intact perineum. Body and shoulders atraumatically. Cord clamped and cut and to Dr. Cade who was awaiting. Manual exploration able to reach baby foot but no movement with gentle traction. Decision to proceed with section. Transfer to OR bed. Oliveira catheter placed and prep preformed. Drape placed. General anesthesia initiated. A Pfannenstiel skin incision was made with the scalpel and carried through to the underlying layer of fascia. The fascia was entered bluntly and the underl diane rectus muscles were dissected off bluntly. The rectus muscles were in the midline. The peritoneum was entered bluntly; this incision was extended superiorly and inferiorly with good visualization of the bladder. The bladder blade was inserted. The lower uterine segment was incised in a transverse fashion using the scalpel and with digital traction. Clear fluid was noted. The was subsequently delivered after grasping a foot. Second foot was by baby's head. Eventually both feet brought to incision and delivered with usual breech maneuvers without difficulty. The cord was clamped and cut. Cord gases obtained. The was subsequently handed to the awaiting machine repairer maintenance whose presence had been requested. The placenta was delivered spontaneously intact with a three-vessel cord noted. Clamp had been removed from first placenta which was delivered abdominally. The uterus was exteriorized and cleared of all clots and debris. The uterine incision was repaired in 2 layers using 0 monocryl. Hemostasis was visualized. Hemostasis was visualized bilaterally. The uterus was returned to the abdomen. The uterine incision was reexamined and it was noted to be hemostatic. Was initially boggy but hemostasis obtained with TXA and Hemabate. The pelvis was copiously irrigated. The fascia was closed with 1 PDS suture, and the skin was closed with 3-0 monocryl. Sponge, lap, and instrument counts were correct x2. The patient was stable at the completion of the procedure and was subsequently transferred to the recovery room in stable condition.
[2021-02-14] MEDS ORDERED: Ibuprofen 600 MG Tab PO PRN (22:51)
[2021-02-14] MEDS ORDERED: Dextrose 5%-Lactated Ringers 1,000 ML IV SCH (22:51)
[2021-02-14] MEDS ORDERED: Naloxone 0.4 MG/ML SDV IVPUSH PRN (22:51)
[2021-02-14] MEDS ORDERED: diphenhydrAMINE 50 MG/ML SDV IVPUSH PRN (22:51)
[2021-02-14] MEDS ORDERED: ePHEDrine 50 MG/ML SDV IVPUSH PRN (22:51)
[2021-02-15] MEDS ORDERED: Clindamycin Phosphate 300 MG/2 ML SDV IM SCH
[2021-02-15] MEDS: Acetaminophen/oxyCODONE 325-5 MG Tab PO PRN ×5 (01:13→20:33)
[2021-02-15] MEDS ORDERED: Clindamycin Phosphate 300 MG/2 ML SDV IV SCH (01:30)
[2021-02-15] MEDS ORDERED: Diphtheria,Pertussis(Acell),Tetanus Vaccine 0.5 ML Syringe IM ONE (02:13)
[2021-02-15] MEDS: Ketorolac 30 MG/ML SDV IVPUSH PRN ×2 (04:34→11:06)
[2021-02-15] MEDS: Ampicillin 2 GM in Sodium Chloride 0.9% 100 ML IV SCH ×3 (06:02→18:04)
--- NOTE | 2021-02-15 07:30 | PCM48HPAN ---
Post Anesthesia Note - EVALUATION WITHIN 48HRS OF ANESTHETIC Vital Signs in Normal Range: Yes Patient Participated in Evaluation: Yes Respiratory Function Stable: Yes Airway Patent: Yes Cardiovascular Function Stable: Yes Hydration Status Stable: Yes Pain Control Satisfactory: Yes Nausea and Vomiting Control Satisfactory: Yes Mental Status Recovered: Yes Vital Signs: Last Vital Signs Temp 99.9 F 02/15/21 04:23 Pulse 80 02/15/21 04:23 Resp 16 02/15/21 07:00 BP 117/86 02/15/21 04:23 Pulse Ox 96 02/15/21 07:00
--- NOTE | 2021-02-15 08:08 | CR ---
Abdomen: Supine view of the abdomen was obtained. Comparison: No prior abdominal pain film study is available. Bowel gas pattern is normal. No radiopaque foreign object is seen. Bony structures are unremarkable. Impression: 1. No radiopaque foreign object is seen within the abdomen. Diagnostic code #1 Agree with preliminary report issued by Garrick finalized on 02/14/21, 11:15 PM CDT
--- NOTE | 2021-02-15 11:05 | PCM.PNPP ---
- General Info Date of Service: 02/15/21 Functional Status: Reports: Pain Controlled - Review of Systems General: Reports: No Symptoms HEENT: Reports: No Symptoms Pulmonary: Reports: No Symptoms Cardiovascular: Reports: No Symptoms Gastrointestinal: Reports: No Symptoms Genitourinary: Reports: No Symptoms Musculoskeletal: Reports: No Symptoms Skin: Reports: No Symptoms Neurological: Reports: No Symptoms Psychiatric: Reports: No Symptoms - General Info Date of Service: 02/15/21 - Patient Data Vital Signs - Most Recent: Last Vital Signs Temp 37.7 C 02/15/21 04:23 Pulse 80 02/15/21 04:23 Resp 16 02/15/21 07:00 BP 117/86 02/15/21 04:23 Pulse Ox 96 02/15/21 07:00 Weight - Most Recent: 92.986 kg I&O - Last 24 Hours: Intake & Output 02/14/21 02/15/21 02/15/21 22:59 06:59 14:59 Intake Total 2550 2450 Output Total 340 2341 Balance 2210 109 Lab Results - Last 24 Hours: Laboratory Results - last 24 hr 02/14/21 02/14/21 02/14/21 Range/Units 21:18 21:18 21:20 WBC 20.58 H (3.98-10.04) K/mm3 RBC 3.02 L (3.98-5.22) M/mm3 Hgb 10.2 L D (11.2-15.7) gm/dl Hct 30.8 L (34.1-44.9) % MCV 102.0 H D (79.4-94.8) fl MCH 33.8 H (25.6-32.2) pg MCHC 33.1 (32.2-35.5) g/dl RDW Std Deviation 47.3 H (36.4-46.3) fL Plt Count 111 L (182-369) K/mm3 MPV 11.7 (9.4-12.3) fl Neut % (Auto) 90.9 H (34.0-71.1) % Lymph % (Auto) 5.5 L (19.3-51.7) % [place] % (Auto) 3.1 L (4.7-12.5) % Eos % (Auto) 0.4 L (0.7-5.8) Baso % (Auto) 0.1 (0.1-1.2) % Neut # (Auto) 18.72 H (1.56-6.13) K/mm3 Lymph # (Auto) 1.13 L (1.18-3.74) K/mm3 [place] # (Auto) 0.63 H (0.24-0.36) K/mm3 Eos # (Auto) 0.08 (0.04-0.36) K/mm3 Baso # (Auto) 0.02 (0.01-0.08) K/mm3 Manual Slide Review Abnormal smear Urine Color Yellow (Yellow) Urine Appearance Clear (Clear) Urine pH 7.0 (5.0-8.0) Ur Specific [place] 1.025 (1.005-1.030) Urine Protein 2+ H (Negative) Urine Glucose (UA) Negative (Negative) Urine Ketones 1+ H (Negative) Urine Occult Blood Trace-lysed H (Negative) Urine Nitrite Negative (Negative) Urine Bilirubin Negative (Negative) Urine Urobilinogen 0.2 (0.2-1.0) Ur Leukocyte Esterase Negative (Negative) Urine RBC 5-10 H (0-5) /hpf Urine WBC 0-5 (0-5) /hpf Ur Squamous Epith Cells 0-5 (0-5) /hpf Urine Bacteria Few (FEW) /hpf Urine Mucus Few (FEW) /hpf Urine Opiates Screen (COOVMF=975) Ur Buprenorphine Scrn (CUTOFF=10) Ur Oxycodone Screen (RCI0AU=613) Urine Methadone Screen (NLWRMS=884) Ur Propoxyphene Screen (CKTBVM=472) Ur Barbiturates Screen (FZWJZA=917) Ur Tricyclics Screen (UGCTBO=495) Ur Phencyclidine Scrn (CUTOFF=25) Ur Amphetamine Screen (OMTATT=691) U Methamphetamines Scrn (ABXICK=572) U Benzodiazepines Scrn (TWLSZY=651) U Cocaine Metab Screen (BHTTXG=500) U Marijuana (THC) Screen (CUTOFF=50) Blood Type A POSITIVE Gel Antibody Screen Negative 02/14/21 Range/Units 21:20 WBC (3.98-10.04) K/mm3 RBC (3.98-5.22) M/mm3 Hgb (11.2-15.7) gm/dl Hct (34.1-44.9) % MCV (79.4-94.8) fl MCH (25.6-32.2) pg MCHC (32.2-35.5) g/dl RDW Std Deviation (36.4-46.3) fL Plt Count (182-369) K/mm3 MPV (9.4-12.3) fl Neut % (Auto) (34.0-71.1) % Lymph % (Auto) (19.3-51.7) % [place] % (Auto) (4.7-12.5) % Eos % (Auto) (0.7-5.8) Baso % (Auto) (0.1-1.2) % Neut # (Auto) (1.56-6.13) K/mm3 Lymph # (Auto) (1.18-3.74) K/mm3 [place] # (Auto) (0.24-0.36) K/mm3 Eos # (Auto) (0.04-0.36) K/mm3 Baso # (Auto) (0.01-0.08) K/mm3 Manual Slide Review Urine Color (Yellow) Urine Appearance (Clear) Urine pH (5.0-8.0) Ur Specific [place] (1.005-1.030) Urine Protein (Negative) Urine Glucose (UA) (Negative) Urine Ketones (Negative) Urine Occult Blood (Negative) Urine Nitrite (Negative) Urine Bilirubin (Negative) Urine Urobilinogen (0.2-1.0) Ur Leukocyte Esterase (Negative) Urine RBC (0-5) /hpf Urine WBC (0-5) /hpf Ur Squamous Epith Cells (0-5) /hpf Urine Bacteria (FEW) /hpf Urine Mucus (FEW) /hpf Urine Opiates Screen Negative (PTNXMD=690) Ur Buprenorphine Scrn Negative (CUTOFF=10) Ur Oxycodone Screen Negative (UEU6ZD=318) Urine Methadone Screen Negative (MDUGVH=322) Ur Propoxyphene Screen Negative (FOGERJ=026) Ur Barbiturates Screen Negative (FKYLIB=161) Ur Tricyclics Screen Negative (AXZSET=698) Ur Phencyclidine Scrn Negative (CUTOFF=25) Ur Amphetamine Screen Negative (YLRWLF=645) U Methamphetamines Scrn Negative (WZHMPG=773) U Benzodiazepines Scrn Negative (EYYMLJ=055) U Cocaine Metab Screen Negative (VJEGUA=470) U Marijuana (THC) Screen Negative (CUTOFF=50) Blood Type Gel Antibody Screen Med Orders - Current: Current Medications Diphenhydramine HCl (Diphenhydramine 50 Mg/Ml Sdv) 25 mg IVPUSH Q6H PRN PRN Reason: Itching or Nausea Ephedrine Sulfate (Ephedrine 50 Mg/Ml Sdv) 5 mg IVPUSH SEECOMMENT PRN PRN Reason: Other Fentanyl (Fentanyl 100 Mcg/2 Ml Sdv) 50 mcg IVPUSH Q5M PRN PRN Reason: Pain Ampicillin Sodium 2 gm/ Sodium (Chloride) 100 mls @ 200 mls/hr IV Q6H [facility] Last Admin: 02/15/21 06:02 Dose: 200 mls/hr Documented by: Clindamycin Phosphate 300 mg/ (Sodium Chloride) 52 mls @ 312 mls/hr IV Q8H [facility] Last Admin: 02/15/21 09:58 Dose: 312 mls/hr Documented by: Ibuprofen (Ibuprofen 600 Mg Tab) 600 mg PO Q6H PRN PRN Reason: mild pain or fever Ketorolac Tromethamine (Ketorolac 30 Mg/Ml Sdv) 30 mg IVPUSH Q6H PRN PRN Reason: Pain Last Admin: 02/15/21 04:34 Dose: 30 mg Documented by: Naloxone HCl (Naloxone 0.4 Mg/Ml Sdv) 0.1 mg IVPUSH SEECOMMENT PRN PRN Reason: Respiratory Depression Oxycodone/Acetaminophen (Acetaminophen/Oxycodone 325-5 Mg Tab) 1 tab PO Q4H PRN PRN Reason: Pain (moderate 4-6) Last Admin: 02/15/21 09:16 Dose: 1 tab Documented by: Oxycodone/Acetaminophen (Acetaminophen/Oxycodone 325-5 Mg Tab) 2 tab PO Q4H PRN PRN Reason: Pain (severe 7-10) Last Admin: 02/15/21 01:13 Dose: 2 tab Documented by: Discontinued Medications Carboprost Tromethamine (Carboprost Tromethamine 250 Mcg/1 Ml Amp) 250 mcg .ROUTE .STK-MED ONE Stop: 02/14/21 20:31 Citric Acid/Sodium Citrate (Citric Acid/Sodium Citrate Solution 30 Ml Cup) 30 ml PO ONETIME ONE Stop: 02/14/21 19:52 Clindamycin Phosphate (Clindamycin Phosphate 300 Mg/2 Ml Sdv) 300 mg IM Q8H [facility] Clindamycin Phosphate (Clindamycin Phosphate 300 Mg/2 Ml Sdv) 300 mg IV Q8H [facility] Diphtheria/Tetanus/Acell Pertussis (Diphtheria,Pertussis(Acell),Tetanus Vaccine 0.5 Ml Syringe) 0.5 ml IM .ONCE ONE Stop: 02/15/21 02:14 Lactated Ringer's (Ringers, Lactated) 1,000 mls @ 125 mls/hr IV ASDIRECTED KENNETH Ampicillin Sodium 2 gm/ Sodium (Chloride) 100 mls @ 200 mls/hr IV ONETIME ONE Stop: 02/14/21 20:20 Cefazolin Sodium/Dextrose 2 gm (/ Premix) 50 mls @ 100 mls/hr IV ONETIME ONE Stop: 02/14/21 20:20 Oxytocin/Lactated Ringer's (Pitocin In Lr 20 Units/1,000 Ml) 20 unit in 1,000 mls @ 500 mls/hr IV TITRATE KENNETH Oxytocin/Lactated Ringer's (Pitocin In Lr 10 Units/1,000 Ml) 10 unit in 1,000 mls @ 100 mls/hr IV ASDIRECTED KENNETH Dextrose/Lactated Ringer's (Dextrose 5%-Lactated Ringers) 1,000 mls @ 125 mls/hr IV ASDIRECTED KENNETH Stop: 02/15/21 06:50 Ampicillin Sodium 2 gm/ Sodium (Chloride) 100 mls @ 200 mls/hr IV NOW ONE Stop: 02/14/21 23:29 Last Admin: 02/15/21 11:02 Dose: Not Given Documented by: Clindamycin Phosphate 300 mg/ (Sodium Chloride) 52 mls @ 104 mls/hr IV Q8H [facility] Last Admin: 02/15/21 01:55 Dose: 104 mls/hr Documented by: Metoclopramide HCl (Metoclopramide 10 Mg/2 Ml Sdv) 10 mg IVPUSH ONETIME ONE Stop: 02/14/21 19:52 Sodium Chloride (Sodium Chloride 0.9% 10 Ml Syringe) 10 ml FLUSH ASDIRECTED PRN PRN Reason: Keep Vein Open - Infant Interaction Disposition, : [place] to [place]ery ([place]) - Recovery Exam Fundal Tone: Firm Fundal Level: At Umbilicus Fundal Placement: Midline Lochia Amount: Scant Lochia Color: Rubra/Red Perineum Description: Intact, Minimal Bruising/Swelling Episiotomy/Laceration: None - Exam General: Alert, Oriented HEENT: Pupils Equal Neck: Supple Lungs: Clear to Auscultation, Normal Respiratory Effort Cardiovascular: Regular Rate, Regular Rhythm GI/Abdominal Exam: Normal Bowel Sounds, Soft, Non-Tender, No Organomegaly, No Distention, No Abnormal Bruit, No Mass, Pelvis Stable Extremities: Normal Inspection, Normal Range of Motion, Non-Tender, No Pedal Edema, Normal Capillary Refill Skin: Warm, Dry, Intact Wound/Incisions: Healing Well Neurological: No New Focal Deficit - Problem List Review Problem List Initiated/Reviewed/Updated: Yes - My Orders Last 24 Hours: My Active Orders 02/14/21 19:10 Resuscitation Status Routine 02/14/21 22:51 Acetaminophen/oxyCODONE [Percocet 325-5 MG] 1 tab PO Q4H PRN Acetaminophen/oxyCODONE [Percocet 325-5 MG] 2 tab PO Q4H PRN Ibuprofen [Motrin] 600 mg PO Q6H PRN Naloxone [Narcan] 0.1 mg IVPUSH SEECOMMENT PRN diphenhydrAMINE [Benadryl] 25 mg IVPUSH Q6H PRN ePHEDrine [ePHEDrine sulfate] 5 mg IVPUSH SEECOMMENT PRN 02/14/21 22:51 Communication Order [RC] PER UNIT ROUTINE Communication Order [RC] PER UNIT ROUTINE Communication Order [RC] PER UNIT ROUTINE Notify Provider Intake and Out [RC] ASDIRECTED Vital Signs [RC] Q1H Assess Lochia [WOMSER] Per Unit Routine Assess Uterine Involution [WOMSER] Per Unit Routine Medication Administration Instruction [OM.PC] Routine 02/15/21 01:14 Ketorolac [Toradol] 30 mg IVPUSH Q6H PRN 02/15/21 02:13 Vaccines to be Administered [RC] PER UNIT ROUTINE 02/15/21 06:00 Ampicillin 2 gm Sodium Chloride 0.9% [Normal Saline] 100 ml IV Q6H 02/15/21 10:00 Clindamycin Phosphate [Cleocin] 300 mg Sodium Chloride 0.9% [Normal Saline] 50 ml IV Q8H 02/15/21 21:12 Urinary Catheter Removal [RC] Per Unit Routine 02/15/21 21:24 CBC W/O DIFF,HEMOGRAM [HEME] Timed - Assessment Assessment:: Doing well. Calling soon to check on babies again. No complaints. Likely home/mundo tomorrow. Will transfer to med surg today. - Plan Plan:: Likely home tomorrow. CBC pending.
[2021-02-16] MEDS: Ampicillin 2 GM in Sodium Chloride 0.9% 100 ML IV SCH ×3 (00:29→13:34)
[2021-02-16] MEDS: Acetaminophen/oxyCODONE 325-5 MG Tab PO PRN ×2 (02:40→06:29)
--- NOTE | 2021-02-16 08:43 | PCM.SN.2 ---
- Free Text/Narrative Note: Post Operative Progress Note POD #2 Subjective: Doing well overall. Ambulating without difficulty. Lochia minimal. Voiding without difficulty. Passing flatus. Tolerating regular diet without nausea or vomiting. Pain controlled with oral medications. Pumping breastmilk with small amounts being produced with minimal difficulty. Objective: Vitals: Vital Signs - 24 hr 02/15/21 02/15/21 02/15/21 09:00 09:10 10:00 Temperature 36.7 C Pulse, 76 Peripheral Respiratory 14 14 13 Rate Blood Pressure 91/51 L O2 Sat by Pulse 98 95 98 Oximetry 02/15/21 02/15/21 02/15/21 12:16 13:00 15:56 Temperature 36.4 C Pulse, 82 93 Peripheral Respiratory 16 14 16 Rate Blood Pressure 103/65 142/60 H O2 Sat by Pulse 96 98 98 Oximetry 02/15/21 02/16/21 02/16/21 20:25 00:28 03:19 Temperature 36.6 C 36.8 C 36.8 C Pulse, 71 77 72 Peripheral Respiratory 16 18 17 Rate Blood Pressure 118/83 114/86 96/64 O2 Sat by Pulse 94 L 92 L 96 Oximetry Physical Exam General: Alert and oriented, no acute distress Lungs: Clear to auscultation bilaterally Heart: Regular rate and rhythm Abdomen: Soft, minimal appropriate tenderness, non-distended, fundus midline, nontender and 1 fingerbreadth below the umbilicus Incision: Clean, dry and intact, no erythema, bleeding or drainage with Steri- Strips in place Extremities: 1+ edema in bilateral lower extremities, no calf tenderness bilaterally Labs: Laboratory Results - last 24 hr 02/15/21 Range/Units 12:18 WBC 27.43 H (3.98-10.04) K/mm3 RBC 2.36 L (3.98-5.22) M/mm3 Hgb 7.9 L D (11.2-15.7) gm/dl Hct 24.1 L (34.1-44.9) % MCV 102.1 H (79.4-94.8) fl MCH 33.5 H (25.6-32.2) pg MCHC 32.8 (32.2-35.5) g/dl RDW Std Deviation 46.1 (36.4-46.3) fL Plt Count 111 L (182-369) K/mm3 MPV 11.8 (9.4-12.3) fl ASSESSMENT: 35-year-old female -1-0-4 s/p vaginal delivery of twin A and primary section for twin B PPD/POD #2 for footling presentation of twin B, complicated by delivery at 30 weeks gestational age, dichorionic/diamniotic twins, history of mitral valve repair and bacterial endocarditis, history of cerebrovascular accident and seizures PLAN: Doing well Pumping breastmilk with small amounts produced with minimal difficulty. Assist as needed Incision healing well. Continue to keep clean and dry. Lochia minimal. Continue to monitor for appropriate lochia. Continue routine post-operative care Discharge home today Joshua Spears MD 8:42 AM 02/16/2021
--- NOTE | 2021-02-16 08:43 | PCM.DCSUM1 ---
Discharge Summary - Hospital Course Free Text/Narrative:: - General Post-Op/Procedure Note Date of Surgery/Procedure: 02/14/21 Operative Procedure(s): Vaginal delivery, primary section Findings: A - Vertex, vaginal delivery at 0803, APGARS 5/7/7, weight 1770g B - Breech (footling), , APGARS 2/9, at 1660, male Pre Op Diagnosis: labor Post-Op Diagnosis: Same Anesthesia Technique: General ET Tube Primary Surgeon: Dayana Jimenez Anesthesia Provider: [facility] [employer] Hostess: Leanna Ortiz Fluid Replacement, Intraop: 1,000 EBL in mLs: 1,600 Complications: None Condition: Good Free Text/Narrative:: Stage I - patient presented in active labor, complete, 30 weeks. Stage II - of viable male in or. Head delivered in controlled manner over intact perineum. Body and shoulders atraumatically. Cord clamped and cut and to Dr. Cade who was awaiting. Manual exploration able to reach baby foot but no movement with gentle traction. Decision to proceed with section. Transfer to OR bed. Oliveira catheter placed and prep preformed. Drape placed. General anesthesia initiated. A Pfannenstiel skin incision was made with the scalpel and carried through to the underlying layer of fascia. The fascia was entered bluntly and the underlying rectus muscles were dissected off bluntly. The rectus muscles were s eparated in the midline. The peritoneum was entered bluntly; this incision was extended superiorly and inferiorly with good visualization of the bladder. The bladder blade was inserted. The lower uterine segment was incised in a transverse fashion using the scalpel and with digital traction. Clear fluid was noted. The infant was subsequently delivered after grasping a foot. Second foot was by baby's head. Eventually both feet brought to incision and infant delivered with usual breech maneuvers without difficulty. The cord was clamped and cut. Cord gases obtained. The was subsequently handed to the awaiting ophthalmology assistant whose presence had been requested. The placenta was delivered spontaneously intact with a three-vessel cord noted. Clamp had been removed from first placenta which was delivered abdominally. The uterus was exteriorized and cleared of all clots and debris. The uterine incision was repaired in 2 layers using 0 monocryl. Hemostasis was visualized. Hemostasis was visualized bilaterally. The uterus was returned to the abdomen. The uterine incision was reexamined and it was noted to be hemostatic. Was initially boggy but hemostasis obtained with TXA and Hemabate. The pelvis was copiously irrigated. The fascia was closed with 1 PDS suture, and the skin was closed with 3-0 monocryl. Sponge, lap, and instrument counts were correct x2. The patient was stable at the completion of the procedure and was subsequently transferred to the recovery room in stable condition. Diagnosis: Stroke: No - Discharge Data Discharge Date: 02/16/21 Discharge Disposition: Home, Self-Care 01 Condition: Good - Referral to Home Health Primary Care Physician: Dayana Jimenez MD - Discharge Diagnosis/Problem(s) (1) delivery delivered SNOMED Code(s): 627000289 ICD Code: O82 - ENCOUNTER FOR DELIVERY WITHOUT INDICATION Status: Acute Current Visit: Yes (2) Vaginal delivery SNOMED Code(s): 721084558 ICD Code: O80 - ENCOUNTER FOR FULL-TERM UNCOMPLICATED DELIVERY Status: Acute Current Visit: Yes (3) labor in third trimester with delivery SNOMED Code(s): 68283412673723950 ICD Code: O60.14X0 - LABOR THIRD TRI W DELIVERY THIRD TRI, UNSP Status: Acute Current Visit: Yes (4) 30 weeks gestation of SNOMED Code(s): 65599685 ICD Code: Z3A.30 - 30 WEEKS GESTATION OF Status: Acute Current Visit: No (5) Dichorionic diamniotic twin gestation SNOMED Code(s): 691590550 ICD Code: O30.049 - TWIN , DICHORIONIC/DIAMNIOTIC, UNSP TRIMESTER Status: Acute Current Visit: No Qualifiers: Trimester: third trimester Qualified Code(s): O30.043 - Twin , dichorionic/diamniotic, third trimester - Patient Summary/Data Operative Procedure(s) Performed: Vaginal delivery, primary section Complications: Unable to do breech extraction delivery of twin B and proceeded to primary section under general anesthesia Consults: None Hospital Course: Judy Phelan was admitted for advanced stage of labor. On admission she was dilated to complete and at +2 station. She was taken back to the OR. She was GBS unknown. She was given pitocin for augmentation. She had artificial rupture of membranes with clear fluid. On 02/14/2021 she had a spontaneous vaginal delivery of twin A of a live male at 20:03. Apgars of 5, 7 and 7. Weight of 1770 g (3 pounds 14.4 ounces). Twin B was attempted to be delivered with breech extraction but unable to be delivered. Decision was made to proceed with section. She was given general anesthesia for anesthesia. She was prepped and draped in the normal fashion. On 02/14/2021 she had a primary delivery of twin B with breech delivery of a live male infant at 20:13. Apgars of 2 and 9. Weight of 1660 g (3 pounds 10.6 ounces). She was closed in a normal fashion with double layer closure. There were she did have some decreased tone of the uterus and she was able to have hemostasis with tranexamic acid and Hemabate. There were no other complications with the procedure. Please see the operative report for full details. After delivery the twin infants were transferred to [place] for care in the NICU. Her post operative course was uneventful. Her pain was well controlled and she had minimal lochia. She was ambulating, tolerating a regular diet and voiding normally. She was passing flatus and has not had a bowel movement. She was pumping breastmilk with small amount of milk production. She was afebrile and her hematocrit was 24.1 on POD #1. She desired to be discharged home on the morning of POD #2. Her blood type is A+. - Patient Instructions Diet: Regular Diet as Tolerated Activity: Apply Ice, As Tolerated, No Lifting Over 20 Pounds Activity, Other: Nothing in the vagina for 6 weeks Driving: Do Not Drive (While taking narcotic medications are having significant pain) Showering/Bathing: May Shower Wound/Incision Care: Keep Operative Site/Wound Site Clean and Dry Notify Provider of: Fever, Increased Pain, Swelling and Redness, Drainage, Nausea and/or Vomiting Other/Special Instructions: Please contact your physician's office if you note any bleeding or pus coming from the abdominal incision. Please contact your physician's office if you have heavy vaginal bleeding enough to soak a pad in less than an hour for several hours. Monitor for any signs of an infection in the breasts with severe pain or redness of the breast. - Discharge Plan *PRESCRIPTION DRUG MONITORING PROGRAM REVIEWED*: Yes *COPY OF PRESCRIPTION DRUG MONITORING REPORT IN PATIENT ANNALISA: No Prescriptions/Med Rec: Acetaminophen/oxyCODONE [Percocet 325-5 MG] 1 - 2 tab PO Q6H PRN #30 tablet PRN Reason: Pain Home Medications: Home Meds Vits #93/Iron Fum/FA [ Formula Tablet] 1 tab PO DAILY 11/16/19 [History] Pantoprazole Sodium [Protonix] 40 mg PO DAILY 02/10/21 [History] Acetaminophen/oxyCODONE [Percocet 325-5 MG] 1 - 2 tab PO Q6H PRN #30 tablet 02/16/21 [Rx] Ibuprofen [Motrin] 600 mg PO Q6H PRN tablet 02/16/21 [Rx] Patient Handouts: Your Premature or Sick Baby, Breast Pumping Tips, and Self-Care, Care After Delivery, Tips for a Good Latch, Care After Vaginal Delivery, Storing Breast Milk Referrals: Dayana Jimenez MD [Primary Care Provider] - Lexus Zuniga MD [Ordering Only Provider] - (Follow-up in 2 weeks for routine postoperative visit or earlier as needed. This appointment can be done in [place] if the infants are still in the NICU.) Diane Brown MD [Ordering Only Provider] - - Discharge Summary/Plan Comment DC Time >30 min.: No - Patient Data Vitals - Most Recent: Last Vital Signs Temp 36.8 C 02/16/21 03:19 Pulse 72 02/16/21 03:19 Resp 17 02/16/21 03:19 BP 96/64 02/16/21 03:19 Pulse Ox 96 02/16/21 03:19 Weight - Most Recent: 92.986 kg I&O - Last 24 hours: Intake & Output 02/15/21 02/16/21 02/16/21 22:59 06:59 14:59 Intake Total 300 850 Output Total 250 900 Balance 50 -50 Lab Results - Last 24 hrs: Laboratory Results - last 24 hr 02/15/21 Range/Units 12:18 WBC 27.43 H (3.98-10.04) K/mm3 RBC 2.36 L (3.98-5.22) M/mm3 Hgb 7.9 L D (11.2-15.7) gm/dl Hct 24.1 L (34.1-44.9) % MCV 102.1 H (79.4-94.8) fl MCH 33.5 H (25.6-32.2) pg MCHC 32.8 (32.2-35.5) g/dl RDW Std Deviation 46.1 (36.4-46.3) fL Plt Count 111 L (182-369) K/mm3 MPV 11.8 (9.4-12.3) fl Med Orders - Current: Current Medications Diphenhydramine HCl (Diphenhydramine 50 Mg/Ml Sdv) 25 mg IVPUSH Q6H PRN PRN Reason: Itching or Nausea Ephedrine Sulfate (Ephedrine 50 Mg/Ml Sdv) 5 mg IVPUSH SEECOMMENT PRN PRN Reason: Other Fentanyl (Fentanyl 100 Mcg/2 Ml Sdv) 50 mcg IVPUSH Q5M PRN PRN Reason: Pain Ampicillin Sodium 2 gm/ Sodium (Chloride) 100 mls @ 200 mls/hr IV Q6H [facility] Last Admin: 02/16/21 05:44 Dose: 200 mls/hr Documented by: Clindamycin Phosphate 300 mg/ (Sodium Chloride) 52 mls @ 312 mls/hr IV Q8H [facility] Last Admin: 02/16/21 02:27 Dose: 312 mls/hr Documented by: Ibuprofen (Ibuprofen 600 Mg Tab) 600 mg PO Q6H PRN PRN Reason: mild pain or fever Ketorolac Tromethamine (Ketorolac 30 Mg/Ml Sdv) 30 mg IVPUSH Q6H PRN PRN Reason: Pain Last Admin: 02/15/21 11:06 Dose: 30 mg Documented by: Naloxone HCl (Naloxone 0.4 Mg/Ml Sdv) 0.1 mg IVPUSH SEECOMMENT PRN PRN Reason: Respiratory Depression Oxycodone/Acetaminophen (Acetaminophen/Oxycodone 325-5 Mg Tab) 1 tab PO Q4H PRN PRN Reason: Pain (moderate 4-6) Last Admin: 02/16/21 06:29 Dose: 1 tab Documented by: Oxycodone/Acetaminophen (Acetaminophen/Oxycodone 325-5 Mg Tab) 2 tab PO Q4H PRN PRN Reason: Pain (severe 7-10) Last Admin: 02/15/21 20:33 Dose: 2 tab Documented by: Discontinued Medications Carboprost Tromethamine (Carboprost Tromethamine 250 Mcg/1 Ml Amp) 250 mcg .ROUTE .STK-MED ONE Stop: 02/14/21 20:31 Citric Acid/Sodium Citrate (Citric Acid/Sodium Citrate Solution 30 Ml Cup) 30 ml PO ONETIME ONE Stop: 02/14/21 19:52 Last Admin: 02/15/21 11:02 Dose: Not Given Documented by: Clindamycin Phosphate (Clindamycin Phosphate 300 Mg/2 Ml Sdv) 300 mg IM Q8H [facility] Last Admin: 02/15/21 11:03 Dose: Not Given Documented by: Clindamycin Phosphate (Clindamycin Phosphate 300 Mg/2 Ml Sdv) 300 mg IV Q8H [facility] Diphtheria/Tetanus/Acell Pertussis (Diphtheria,Pertussis(Acell),Tetanus Vaccine 0.5 Ml Syringe) 0.5 ml IM .ONCE ONE Stop: 02/15/21 02:14 Fentanyl (Fentanyl 250 Mcg/5 Ml Sdv) Confirm Administered Dose 250 mcg .ROUTE .STK-MED ONE Stop: 02/14/21 20:26 Lactated Ringer's (Ringers, Lactated) 1,000 mls @ 125 mls/hr IV ASDIRECTED [facility] Ampicillin Sodium 2 gm/ Sodium (Chloride) 100 mls @ 200 mls/hr IV ONETIME ONE Stop: 02/14/21 20:20 Last Admin: 02/15/21 11:10 Dose: Not Given Documented by: Cefazolin Sodium/Dextrose 2 gm (/ Premix) 50 mls @ 100 mls/hr IV ONETIME ONE Stop: 02/14/21 20:20 Last Admin: 02/15/21 11:11 Dose: Not Given Documented by: Oxytocin/Lactated Ringer's (Pitocin In Lr 20 Units/1,000 Ml) 20 unit in 1,000 mls @ 500 mls/hr IV TITRATE [facility] Oxytocin/Lactated Ringer's (Pitocin In Lr 10 Units/1,000 Ml) 10 unit in 1,000 mls @ 100 mls/hr IV ASDIRECTED [facility] Dextrose/Lactated Ringer's (Dextrose 5%-Lactated Ringers) 1,000 mls @ 125 mls/hr IV ASDIRECTED [facility] Stop: 02/15/21 06:50 Ampicillin Sodium 2 gm/ Sodium (Chloride) 100 mls @ 200 mls/hr IV NOW ONE Stop: 02/14/21 23:29 Last Admin: 02/15/21 11:02 Dose: Not Given Documented by: Clindamycin Phosphate 300 mg/ (Sodium Chloride) 52 mls @ 104 mls/hr IV Q8H [facility] Last Admin: 02/15/21 01:55 Dose: 104 mls/hr Documented by: Sodium Chloride (Normal Saline) Confirm Administered Dose 250 mls @ as directed .ROUTE .STK-MED ONE Stop: 02/14/21 20:21 Lactated Ringer's (Ringers, Lactated) Confirm Administered Dose 1,000 mls @ as directed .ROUTE .STK-MED ONE Stop: 02/14/21 20:34 Ketorolac Tromethamine (Ketorolac 30 Mg/Ml Sdv) Confirm Administered Dose 30 mg .ROUTE .ST-MED ONE Stop: 02/14/21 20:38 Metoclopramide HCl (Metoclopramide 10 Mg/2 Ml Sdv) 10 mg IVPUSH ONETIME ONE Stop: 02/14/21 19:52 Last Admin: 02/15/21 11:02 Dose: Not Given Documented by: Miscellaneous Medication (Phenylephrine Hcl In 0.9% Nacl 1 Mg/10 Ml Syringe) Confirm Administered Dose 1 mg .ROUTE .STK-MED ONE Stop: 02/14/21 20:33 Oxytocin (Oxytocin 10 Units/1 Ml Sdv) Confirm Administered Dose 10 unit .ROUTE .STK-MED ONE Stop: 02/14/21 20:18 Propofol (Propofol 200 Mg/20 Ml Sdv) Confirm Administered Dose 200 mg .ROUTE .STK-MED ONE Stop: 02/14/21 20:06 Sodium Chloride (Sodium Chloride 0.9% 10 Ml Syringe) 10 ml FLUSH ASDIRECTED PRN PRN Reason: Keep Vein Open Tranexamic Acid (Tranexamic Acid 1,000 Mg/10 Ml Amp) Confirm Administered Dose 1,000 mg .ROUTE .STK-MED ONE Stop: 02/14/21 20:21
[2021-02-16 09:27] VITALS: BP 123/64; PULSE 91
[2021-02-16] MEDS ORDERED: Diphtheria,Pertussis(Acell),Tetanus Vaccine 0.5 ML Syringe IM ONE (10:00)
== END 2021-02-16 10:47 | disposition home or self-care (01) | DRG 786 ==
LOC: JD.OBCHECK 19:00 → JD.OB 19:03 → JD.OBCHECK 19:58 → JD.OB 19:59 → OBSVTOIN 20:03 → JD.OB 20:04 → JD.MS 02-15 14:53
PROVIDERS: ADMIT Obstetrics & Gynecology; ATTEND Obstetrics & Gynecology
PROC: 10E0XZZ Delivery of Products of Conception, External Approach (ICD-10-PCS; principal; 2021-02-14)
PROC: 10D00Z1 Extraction of Products of Conception, Low, Open Approach (ICD-10-PCS; 2021-02-14)
PROC: 3E0234Z Introduction of Serum, Toxoid and Vaccine into Muscle, Percutaneous Approach (ICD-10-PCS; 2021-02-16)
DX: O30.043 Twin pregnancy, dichorionic/diamniotic, third trimester (principal); O60.14X0 Preterm labor third trimester with preterm delivery third trimester, not applicable or unspecified; O32.1XX1 Maternal care for breech presentation, fetus 1; O99.62 Diseases of the digestive system complicating childbirth; K21.9 Gastro-esophageal reflux disease without esophagitis; Z3A.30 30 weeks gestation of pregnancy; Z37.2 Twins, both liveborn; Z88.1 Allergy status to other antibiotic agents; Z91.09 Other allergy status, other than to drugs and biological substances; Z79.82 Long term (current) use of aspirin; Z23 Encounter for immunization
CPT/HCPCS: 01961; 36415; 59025; 59409; 74018; 74018-26; 80306; 81001; 85025; 85027; 86850; 86900; 86901; 90471; 90715; A9270-GY; J0290; J0330; J1885; J2370; J2590; J2704; J3010; J3490; J7050; J7120